=== PATIENT | female | born 1990 | race Two or more races ===

== ENCOUNTER 2025-05-22 22:31 | Emergency (ER) | payer BC ==
[~2025-05-22] VITALS: Ht 165.1 cm; Wt 87.0 kg
[2025-05-22 23:25] VITALS: O2SAT 100
[2025-05-22] MEDS: KETOROLAC 15MG/ML VIAL IM ONE (23:36)
[2025-05-23] MEDS ORDERED: LIDO-53 TP (00:25)
[2025-05-23] MEDS ORDERED: NAPR-1176 MT (00:25)
[2025-05-23 01:05] VITALS: BP 127/79; PULSE 77; RESP 18; TEMP 36.8; O2SAT 97
== END 2025-05-23 01:05 | disposition home or self-care (01) ==
LOC: ER 22:31
DX: M25.571 Pain in right ankle and joints of right foot (principal); Z79.899 Other long term (current) drug therapy; Z79.1 Long term (current) use of non-steroidal anti-inflammatories (NSAID)
CPT/HCPCS: 99285; 93971; 73610; 96372; J1885